=== PATIENT | male | born 1985 | race Two or more races ===

== ENCOUNTER 2024-09-08 20:06 | Observation (INO) ==
[2024-09-08] MEDS ORDERED: Ondansetron 4 mg VIAL 2 MG/ML 2 ml VIAL ONE (20:36)
[2024-09-08 20:37] LABS: ABS Basophils 0.1 10^3/uL (0.0-0.1); ABS Eosinophils 0.1 10^3/uL (0.0-0.5); ABS Lymphocytes 3.3 10^3/uL (1.0-4.8); ABS Monocytes 0.7 10^3/uL (0.0-1.1); ABS Neutrophils 3.1 10^3/uL (1.5-7.6); ABS Nucleated RBC 0.01 10^3/ul; Eosinophil % 1.1 %; Hematocrit 45.8 % (38-53); Lymphocyte % 45.5 %; Mean Corpuscular Hemoglobin 30.2 pg (27-33); Mean Corpuscular Volume 86.2 fL (80-97); Nucleated Red Blood Cells % 0.1 %/100WBC (0.0-0.8); Platelet Count 234 10^3/uL (150-450); Red Blood Count 5.31 10^6/uL (4.06-5.63); Red Cell Distribution Width 13.8 % (12-17); White Blood Count 7.3 10^3/uL (3.6-10.2)
[2024-09-08] MEDS: Ondansetron 4 mg VIAL 2 MG/ML 2 ml VIAL IV ONE (20:43)
[2024-09-08 20:57] LABS: INR 1.06 (0.85-1.14)
[2024-09-08 21:01] LABS: High Sens Troponin Baseline 41 pg/mL (<20)
[2024-09-08] MEDS: Prochlorperazine 5 mg/ml 2 ml VIAL (10 mg) IV ONE (21:11)
[2024-09-08 21:15] LABS: ALT 96 U/L (7-52); AST 48 U/L (13-39); Albumin 4.8 g/dL (3.5-5.7); Albumin/Globulin Ratio 1.5 (1-3); Alkaline Phosphatase 71 U/L (35-149); Anion Gap 11 mmol/L (2-16); Blood Urea Nitrogen 17 mg/dL (6-24); CO2 Carbon Dioxide 26 mmol/L (22-32); Calcium 9.9 mg/dL (8.6-10.3); Chloride 99 mmol/L (101-111); Creatinine, Serum 1.31 mg/dL (0.67-1.17); Globulin 3.2 g/dL (2-4); Glucose 142 mg/dL (70-100); Potassium 3.1 mmol/L (3.5-5.0); Sodium 136 mmol/L (135-145); Total Bilirubin 0.6 mg/dL (0.2-1.0)
[2024-09-08 22:37] LABS: High Sensitivity Troponin 1 Hr 57 pg/mL (<20)
[2024-09-09 00:40] LABS: High Sensitivity Troponin 3 Hr 91 pg/mL (<20)
[2024-09-09] MEDS ORDERED: Labetalol IV 5 MG/ML 20 ml VIAL ONE (01:18)
[2024-09-09] MEDS: Labetalol IV 5 MG/ML 20 ml VIAL IV PUSH ONE ×2 (01:23→03:14)
[2024-09-09 02:30] LABS: Alcohol, S < 13 mg/dL (<13); Cholesterol 331 mg/dL; HDL Cholesterol 44.5 mg/dL; Triglycerides 505 mg/dL
[2024-09-09 02:45] LABS: LDL Cholesterol Direct 219 mg/dL
[2024-09-09 02:46] LABS: TSH Ultra Thyroid Stim Horm 1.51 mcIU/mL (0.34-5.60)
[2024-09-09] MEDS ORDERED: Sulfur Hexaflouride MICROSPHR 25 MG VIAL IV PRN (03:31)
[2024-09-09 03:40] LABS: Hepatitis B Surface Antigen Nonreactive (Nonreactive)
[2024-09-09 03:45] LABS: Hepatitis B Core IgM Nonreactive (Nonreactive)
[2024-09-09 03:57] LABS: Hepatitis B Surface Ab Not Immune (Immune)
[2024-09-09 03:58] LABS: Hepatitis C Antibody Negative (Negative)
[2024-09-09] MEDS: KCL 20 MEQ/100 ML IVPREMIX 20 MEQ/100 ML BAG IV SCH (06:19)
[2024-09-09] MEDS: Heparin 5000 UNITS/ML 1 mL VIAL IV SCH (07:39)
[2024-09-09] MEDS: Heparin DRIP 25,000 UNITS BAG 25,000 UNITS/250 ML BAG IV SCH (07:40)
[2024-09-09 09:09] LABS: Calcium 9.8 mg/dL (8.6-10.3); Creatinine, Serum 1.29 mg/dL (0.67-1.17); Magnesium 1.9 mg/dL (1.9-2.7); Potassium 4.2 mmol/L (3.5-5.0); eGFR CKD-EPI 72.3 (>60)
[2024-09-09 10:09] LABS: ABS Basophils 0.1 10^3/uL (0.0-0.1); ABS Lymphocytes 2.1 10^3/uL (1.0-4.8); ABS Monocytes 0.5 10^3/uL (0.0-1.1); ABS Neutrophils 7.9 10^3/uL (1.5-7.6); ABS Nucleated RBC 0.01 10^3/ul; Hematocrit 45.3 % (38-53); Hemoglobin 15.6 g/dL (13.2-16.3); Lymphocyte % 19.6 %; Mean Corpuscular Hemoglobin 29.9 pg (27-33); Mean Corpuscular Hgb Conc 34.4 g/dL (31-36); Mean Corpuscular Volume 87.1 fL (80-97); Mean Platelet Volume 9.5 fL (7.5-11.2); Nucleated Red Blood Cells % 0.1 %/100WBC (0.0-0.8); Platelet Count 233 10^3/uL (150-450); Red Cell Distribution Width 13.7 % (12-17); White Blood Count 10.5 10^3/uL (3.6-10.2)
[2024-09-09 11:27] LABS: High Sensitivity Troponin 3 Hr 29 pg/mL (<20)
[2024-09-09 14:13] LABS: Activated Partial Thrombo Time 68.3 seconds (26.0-38.0)
[2024-09-09] MEDS: Heparin 5000 UNITS/ML 1 mL VIAL SUBCUT SCH (21:29)
[2024-09-10 06:45] LABS: Hematocrit 45.7 % (38-53); Mean Corpuscular Hemoglobin 30.3 pg (27-33); Mean Corpuscular Volume 86.6 fL (80-97); Red Blood Count 5.27 10^6/uL (4.06-5.63); White Blood Count 6.2 10^3/uL (3.6-10.2)
[2024-09-10 07:19] LABS: Calcium 9.4 mg/dL (8.6-10.3); Creatinine, Serum 1.23 mg/dL (0.67-1.17); Magnesium 1.9 mg/dL (1.9-2.7); Potassium 4.4 mmol/L (3.5-5.0); eGFR CKD-EPI 76.6 (>60)
[2024-09-10 08:45] LABS: Platelet Count 208 10^3/uL (150-450)
[2024-09-10] MEDS ORDERED: Aminophylline 25 MG/ML VIAL ONE (09:56)
[2024-09-10] MEDS ORDERED: Regadenoson 0.4 MG/5 ML SYRINGE ONE (09:56)
[2024-09-10] MEDS: Magnesium Sulfate 2 gm BAG 2 GM/50 ML BAG IVPB ONE (11:17)
[2024-09-10 14:32] VITALS: BP 196/139
== END 2024-09-10 15:10 | disposition home or self-care (01) ==
LOC: EDHOLD 20:06 → ED 20:06 → SUATTDRO 09-09 03:08 → MEDTELE 09-09 04:40
PROVIDERS: ADMIT Internal Medicine; ATTEND Student in an Organized Health Care Education/Training Program